=== PATIENT | male | born 1950 | race Caucasian/White ===

== ENCOUNTER 2016-12-09 06:48 | Emergency (ER) | payer MEDICARE, OTHER ==
[~2016-12-09] VITALS: Ht 165.1 cm; Wt 74.0 kg
[~2016-12-09 06:48] MED LIST: AMLO1TAB12 PO; ZIAC5 PO
[2016-12-09 06:59] VITALS: Ht 165.1 cm; Wt 74.0 kg
[2016-12-09] MEDS ORDERED: ACETAMINOPHEN 325 MG TAB PO ONE (07:30)
[2016-12-09 07:44] LABS: ADD SCAN DIFF NO
[2016-12-09 07:47] LABS: BASOPHIL # 0.1 10^3/ul (0.0-0.1); BASOPHILS % 0.6 % (0.0-2.0); EOSINOPHILS # 0.1 10^3/ul (0.0-0.5); EOSINOPHILS % 0.7 % (0.0-7.0); HEMATOCRIT 45.6 % (42.0-52.0); HEMOGLOBIN 15.2 g/dl (14.0-18.0); LYMPHOCYTES # 2.5 10^3/ul (0.8-2.9); LYMPHOCYTES % 23.8 % (15.0-51.0); MEAN CORPUSCULAR HEMOGLOBIN 30.5 pg (29.0-33.0); MEAN CORPUSCULAR HGB CONC 33.3 g/dl (32.0-37.0); MEAN CORPUSCULAR VOLUME 91.4 fl (82.0-101.0); MEAN PLATELET VOLUME 9.9 fl (7.4-10.4); MONOCYTE # 0.8 10^3/ul (0.3-0.9); MONOCYTES % 7.6 % (0.0-11.0); NEUTROPHILS % 66.7 % (39.0-77.0); PLATELET COUNT 203 10^3/UL (140-415); RED BLOOD COUNT 4.99 10^6/ul (4.70-6.10); RED CELL DISTRIBUTION WIDTH 14.6 % (11.5-14.5); WHITE BLOOD COUNT 10.4 10^3/ul (4.8-10.8)
[2016-12-09 08:07] LABS: ALBUMIN 4.8 g/dl (3.3-4.9); ALBUMIN/GLOBULIN RATIO 1.71; BILIRUBIN,INDIRECT 0.4 mg/dl (0-1.1); BILIRUBIN,TOTAL 0.4 mg/dl (0.2-1.3); CREATININE 1.02 mg/dl (0.61-1.24); POTASSIUM 3.8 mmol/L (3.5-5.1); TOTAL PROTEIN 7.6 g/dl (6.1-8.1)
[2016-12-09] MEDS ORDERED: ACET500C5 PO (08:46)
--- NOTE | 2016-12-09 09:51 | ERD ---
ER Documentation Chief Complaint Date/Time DATE: 12/09/16 TIME: 09:35 Chief Complaint BIB [facility] C/O FATIGUE AND FEVER X 3 DAYS, DIARRHEA SINCE YESTERDAY HPI 66-year-old male brought in by daughter complaining of fatigue and decreased appetite 2-3 days. Fever started yesterday, along with chills and diarrhea. They did not check her temperature at home. Patient also reports joint pain. Patient returned from [facility] weeks ago. States that he has received multiple mosquito bites while out of the country. He does not know whether he has yellow fever vaccination. Denies abdominal pain or vomiting. Denies cough or runny nose. Denies shortness of breath. Denies neck pain. ROS All systems reviewed and are negative except as per history of present illness. Medications Home Meds Active Scripts Acetaminophen* (Tylophen*) 500 Mg Capsule, 1 CAP PO Q6H Y for PAIN AND OR ELEVATED TEMP, #20 CAP Prov:YANELIS COLEMAN TRADING ANALYST 12/09/16 Reported Medications Amlodipine-Valsartan (Exforge) 1 Tab Tablet, 1 TAB PO DAILY 11/22/13 Bisoprolol-Hydrochlorothiazide (Ziac) 1 Tab Tab, 1 TAB PO DAILY, TAB 11/22/13 Amlodipine-Valsartan (Exforge) 1 Tab Tablet, 1 TAB PO DAILY 11/22/13 Allergies Allergies: Coded Allergies: No Known Allergy (Unverified , 11/22/13) PMhx/Soc History of Surgery: Yes (PROSTATE SURGERY SIX YEARS AGO) Anesthesia Reaction: No Hx Neurological Disorder: No Hx Respiratory Disorders: No Hx Cardiac Disorders: Yes (HTN) Hx Psychiatric Problems: No Hx Miscellaneous Medical Probl: No Hx Alcohol Use: Yes (SOCIALLY) Hx Substance Use: No Hx Tobacco Use: No Smoking Status: Never smoker Physical Exam Vitals Vital Signs Date Time Temp Pulse Resp B/P Pulse Ox O2 Delivery O2 Flow Rate FiO2 12/09/16 06:59 101.7 88 18 130/71 96 Physical Exam General: Well-developed, well-nourished, conscious and coherent, in no distress Skin: Warm and dry without rash, good texture and turgor Head: Normocephalic without evidence of trauma Eyes: Sclera and conjunctivae normal; pupils equal, round, and reactive to light; extraocular movements are intact Neck: Supple without meningismus or adenopathy. Carotids are equal. Trachea midline. No bruits or JVD Chest: Normal AP diameter. Good expansion without retractions. Nontender. Lungs are clear to auscultate bilaterally with good tidal volume Heart: Regular rate and rhythm. No murmur, rub, or gallops heard Abdomen: Soft and nontender without masses, guarding, or rebound. Bowel sounds are active. No hepatosplenomegaly Back: Without spinal or CVA tenderness Extremities: Full range of motion. Good strength bilaterally. No clubbing, cyanosis, or edema. Peripheral pulses are intact. Sensation intact Neuro: Alert and oriented 4, GCS 15. Cranial nerves grossly intact. Motor and sensory exams nonfocal. Moves all extremities. Speech clear. Gait normal Result Diagram: 12/09/1635 12/09/1635 Results 24 hrs Laboratory Tests Test 12/09/16 07:35 White Blood Count 10.410^3/ul Red Blood Count 4.9910^6/ul Hemoglobin 15.2g/dl Hematocrit 45.6% Mean Corpuscular Volume 91.4fl Mean Corpuscular Hemoglobin 30.5pg Mean Corpuscular Hemoglobin Concent 33.3g/dl Red Cell Distribution Width 14.6% Platelet Count 46232^3/UL Mean Platelet Volume 9.9fl Neutrophils % 66.7% Lymphocytes % 23.8% Monocytes % 7.6% Eosinophils % 0.7% Basophils % 0.6% Nucleated Red Blood Cells % 0.0/100WBC Neutrophils # 7.010^3/ul Lymphocytes # 2.510^3/ul Monocytes # 0.810^3/ul Eosinophils # 0.110^3/ul Basophils # 0.110^3/ul Nucleated Red Blood Cells # 0.010^3/ul Sodium Level 141mmol/L Potassium Level 3.8mmol/L Chloride Level 102mmol/L Carbon Dioxide Level 27mmol/L Anion Gap 16 Blood Urea Nitrogen 17mg/dl Creatinine 1.02mg/dl Glucose Level 108mg/dl Calcium Level 9.0mg/dl Total Bilirubin 0.4mg/dl Direct Bilirubin 0.00mg/dl Indirect Bilirubin 0.4mg/dl Aspartate Amino Transf (AST/SGOT) 26IU/L Alanine Aminotransferase (ALT/SGPT) 34IU/L Alkaline Phosphatase 75IU/L Total Protein 7.6g/dl Albumin 4.8g/dl Globulin 2.80g/dl Albumin/Globulin Ratio 1.71 Current Medications Medications (Trade) Dose Ordered Sig/Zohreh Route PRN Reason Start Time Stop Time Status Last Admin Dose Admin Acetaminophen (Tylenol Tab) 650 mg ONCE ONCE PO 12/09/16 07:30 12/09/16 07:31 DC 12/09/16 07:41 Procedures/MDM 60-year-old male present ED with fever, fatigue, and joint pain. Tylenol given to the patient in the ED for fever reduction. Differentials are broad. However , given patient's recent travel history, they include hepatitis A, yellow fever , dengue fever, Chikungunya, Zika, malaria, typhoid, in addition to viral gastroenteritis. CBC and CMP are unremarkable, no sign of liver or renal dysfunction. I doubt acute appendicitis, cholecystitis, bowel obstruction, or other acute abdomen. Patient advised to rest and comfort measures. Patient appears well, stable for discharge and outpatient management. Medical decision making shared with patient and family. Education provided to patient and family. Patient and family expressed understanding of the plan. Medications on discharge: Tylenol. Follow-up: Primary care provider in 2-3 days or return to ED if worse. Departure Diagnosis: Primary Impression: Fever Condition: Stable Patient Instructions: Fever Control (Adult), Gastroenteritis, Viral (6Y-Adult) [facility] Usted se sanz hecho un examen mdico de control que le indica que no est en evaristo condicin que requiera tratamiento urgente en el Departamento de Emergencia. Un estudio ms profundo y el tratamiento de chapman condicin pueden esperar sin ningn riesgo hasta que usted sea atendida/o en el consultorio de chapman mdico o evaristo cl trey. Es responsabilidad suya arreglar evaristo danae para el seguimiento del jb. MANEJO DE CONDICIONES NO URGENTES EN EL FUTURO 1) Si usted tiene un mdico de atencin primaria: Usted debera llamar a chapman mdico de atencin primaria antes de venir al departamento de emergencia. Despus de las horas de consultorio, chapman doctor o chapman asociado/a est disponible por telfono. El mdico o enfermero de debbi en el servicio telefnico puede asesorarle por brayden medio para atender el problema, o jb contrario se puede programar evaristo danae. 2) Si usted no tiene un mdico de atencin primaria: Llame al mdico o clnica de referencia que aparece abajo ananya las horas de consultorio para hacer evaristo danae para que le vean. CLINICAS: [place] [id number] [phone] [facility] [phone] [address] [facility] [phone] [address] [facility]. [place] [id number] [phone] [facility]. [place] [address] [phone] [facility]. [phone] [address] Additional Instructions: Llame al doctor MAANA y mert evaristo DANAE PARA DENTRO DE 2-3 VILLAR.Dgale a la secretaria que nosotros le instruimos hacer esta danae.Avise o llame si chapman condicin se empeora antes de la danae. Regresa aqui si peor o no mejor. YANELIS COLEMAN. KAYLIN Dec 09, 2016 09:46
[2016-12-09 10:01] VITALS: TEMP 99.2
== END 2016-12-09 10:01 | disposition home or self-care (01) ==
LOC: FTE 06:48
DX: R50.9 Fever, unspecified (principal); I10 Essential (primary) hypertension
CPT/HCPCS: 36415; 80053; 85025; 99283